=== PATIENT | male | born 1965 | race African-American/Black ===

== ENCOUNTER 2022-05-28 23:28 | Inpatient (IN) | payer MEDICAID ==
[~2022-05-28] VITALS: Ht 177.8 cm; Wt 52.9 kg
[2022-05-29] MEDS ORDERED: diphenhdrAMINE HCL 50 MG/1 ML VL IV ONE (00:15)
[2022-05-29] MEDS ORDERED: methylPREDNISolone SOD SUCC 125 MG/2 ML VL IV ONE (00:15)
[2022-05-29] MEDS ORDERED: FAMOTIDINE (10MG/ML) 2ML VL IV ONE (00:15)
[2022-05-29 01:36] LABS: Basophils # (auto) 0 10 ^3/uL (0-0.2); Basophils % (auto) 0.3 % (0.0-2.0); Eosinophils # (auto) 0.1 10 ^3/uL (0-0.8); Eosinophils % (auto) 3.1 % (0.0-7.0); Hematocrit 41.9 % (41.0-53.0); Hemoglobin 14.7 g/dL (13.5-17.5); Lymphocytes # (auto) 0.8 10 ^3/uL (0.4-5.4); Lymphocytes % (auto) 20.2 % (10.0-50.0); Mean Corpuscular Hemoglobin 30.6 pg (28.0-32.0); Mean Corpuscular Hgb Conc. 35.1 g/dL (32.0-36.0); Mean Corpuscular Volume 87.1 fL (80.0-100.0); Monocytes # (auto) 0.4 10 ^3/uL (0-1.3); Monocytes % (auto) 11.3 % (0.0-12.0); Neutrophils # (auto) 2.6 10 ^3/uL (1.6-8.6); Neutrophils % (auto) 65.1 % (37.0-80.0); Nucleated Red Blood Cells % 0.1 %; Red Blood Cells 4.81 10^6/uL (4.5-5.90); Red Cell Distribution Width 13.7 % (11.8-14.3)
[2022-05-29 01:42] LABS: Albumin 3.3 g/dL (3.4-5.0); Calcium 8.4 mg/dL (8.5-10.1); Potassium 3.7 mmol/L (3.5-5.1)
[2022-05-29 01:46] LABS: BUN/Creatinine Ratio 18.2 (10.0-20.0)
[2022-05-29 01:48] LABS: Bilirubin, Total 0.3 mg/dL (0.2-1.0); Total Protein 6.7 g/dL (6.4-8.2)
[2022-05-29] MEDS ORDERED: diphenhdrAMINE HCL 25 MG CAP PO PRN (06:45)
[2022-05-29] MEDS ORDERED: HYDROcodone-ACET 5/325MG TAB PO PRN (06:45)
[2022-05-29] MEDS ORDERED: ACETAMINOPHEN 325 MG TAB PO PRN (06:45)
[2022-05-29] MEDS ORDERED: ONDANSETRON HCL 4 MG/2 ML VIAL IV PRN (06:45)
[2022-05-29] MEDS ORDERED: TEMAZEPAM 15 MG CAP PO PRN (06:45)
[2022-05-29] MEDS: ALBUTEROL SULF 2.5 MG/0.5ML(0.5%) NEB SOLN NEB PRN ×2 (07:21→21:56)
[2022-05-29] MEDS: SODIUM CHLORIDE 0.9% 1,000 ML IV SCH ×2 (08:35→18:31)
[2022-05-29] MEDS ORDERED: hydrALAZINE HCL 20 MG/ML VL IV PRN (08:45)
[2022-05-29 09:32] VITALS: BP 183/129
[2022-05-29] MEDS: FAMOTIDINE (10MG/ML) 2ML VL IV SCH ×2 (10:38→21:33)
[2022-05-29] MEDS: methylPREDNISolone SOD SUCC 125 MG/2 ML VL IV SCH ×2 (10:38→21:33)
[2022-05-29] MEDS: BENAZEPRIL HCL 10 MG TAB PO SCH (10:39)
[2022-05-29] MEDS: amLODIPine BESYLATE 5 MG TAB PO SCH (10:39)
[2022-05-29] MEDS: HYDROCORTONE 1% TOPICAL CREAM 30 GM TUBE TOP SCH ×2 (11:04→22:29)
[2022-05-29 11:16] LABS: Urine Bacteria NONE SEEN /hpf (None Seen); Urine Blood Negative /uL (Negative); Urine Specific Gravity 1.016 (1.001-1.035); Urine WBC <1 /hpf (0 - 3)
[2022-05-29 11:59] LABS: Alcohol, Urine < 3.0 mg/dL (0-10)
[2022-05-29 12:18] LABS: Amphetamine Screen, Urine NEGATIVE (NEGATIVE); Barbiturate Scree,Urine NEGATIVE (NEGATIVE); Benzodiazephine Screen, Urine NEGATIVE (NEGATIVE); Cannabinoid Screen, Urine POSITIVE (NEGATIVE); Cocaine Screen, Urine NEGATIVE (NEGATIVE); Opiate Scree,Urine NEGATIVE (NEGATIVE); Phencyclidine Screen, Urine NEGATIVE (NEGATIVE)
[2022-05-29 17:00] VITALS: BP 152/87
[2022-05-29 17:16] VITALS: BP 152/87
[2022-05-29 23:26] VITALS: BP 150/87
[2022-05-30 05:01] VITALS: BP 134/77
[2022-05-30] MEDS: SODIUM CHLORIDE 0.9% 1,000 ML IV SCH (06:17)
[2022-05-30 06:23] LABS: Basophils # (auto) 0 10 ^3/uL (0-0.2); Basophils % (auto) 0.3 % (0.0-2.0); Eosinophils # (auto) 0 10 ^3/uL (0-0.8); Hemoglobin 14.4 g/dL (13.5-17.5); Lymphocytes # (auto) 0.6 10 ^3/uL (0.4-5.4); Lymphocytes % (auto) 6.6 % (10.0-50.0); Mean Corpuscular Hemoglobin 30.6 pg (28.0-32.0); Mean Corpuscular Hgb Conc. 35.2 g/dL (32.0-36.0); Mean Corpuscular Volume 86.9 fL (80.0-100.0); Monocytes # (auto) 0.5 10 ^3/uL (0-1.3); Monocytes % (auto) 5.2 % (0.0-12.0); Neutrophils # (auto) 7.9 10 ^3/uL (1.6-8.6); Neutrophils % (auto) 87.9 % (37.0-80.0); Nucleated Red Blood Cells % 0.4 %; Red Blood Cells 4.72 10^6/uL (4.5-5.90); Red Cell Distribution Width 13.8 % (11.8-14.3); White Blood Cell 8.9 10^3/uL (4.4-10.8)
[2022-05-30 06:35] LABS: Calcium 8.7 mg/dL (8.5-10.1); Potassium 3.8 mmol/L (3.5-5.1)
[2022-05-30 06:37] LABS: BUN/Creatinine Ratio 17.6 (10.0-20.0)
[2022-05-30 08:30] VITALS: BP 141/85
[2022-05-30] MEDS: FAMOTIDINE (10MG/ML) 2ML VL IV SCH (09:03)
[2022-05-30] MEDS: BENAZEPRIL HCL 10 MG TAB PO SCH (09:03)
[2022-05-30] MEDS: methylPREDNISolone SOD SUCC 125 MG/2 ML VL IV SCH (09:03)
[2022-05-30] MEDS: amLODIPine BESYLATE 5 MG TAB PO SCH (09:04)
[2022-05-30] MEDS: HYDROCORTONE 1% TOPICAL CREAM 30 GM TUBE TOP SCH (09:04)
[2022-05-30 13:00] VITALS: BP 145/83
[2022-05-30 14:02] VITALS: BP 145/83
== END 2022-05-30 17:00 | disposition home or self-care (01) | DRG 811 ==
LOC: ER 23:28 → OVERFLOW 05-29 06:39 → EAST 05-29 15:43
PROVIDERS: ADMIT Nurse Practitioner; ATTEND Internal Medicine
DX: T78.49XA Other allergy, initial encounter (principal); F17.210 Nicotine dependence, cigarettes, uncomplicated; T50.8X5A Adverse effect of diagnostic agents, initial encounter; I10 Essential (primary) hypertension; J44.9 Chronic obstructive pulmonary disease, unspecified; R23.8 Other skin changes; S40.822A Blister (nonthermal) of left upper arm, initial encounter; S40.821A Blister (nonthermal) of right upper arm, initial encounter; X58.XXXA Exposure to other specified factors, initial encounter; Y93.89 Activity, other specified; Z91.041 Radiographic dye allergy status; Y92.89 Other specified places as the place of occurrence of the external cause; Y99.8 Other external cause status; Z71.6 Tobacco abuse counseling
CPT/HCPCS: 36415; 71045; 80048; 80053; 80307; 81001; 85025; 94640; 96374; 96375; G0378; J3490

== ENCOUNTER 2022-09-09 13:44 | Emergency (ER) | payer MEDICAID ==
[~2022-09-09] VITALS: Ht 177.8 cm; Wt 52.2 kg
[2022-09-09 15:53] VITALS: BP 107/75; PULSE 76; RESP 18; TEMP 98.1; O2SAT 97
== END 2022-09-09 15:55 | disposition home or self-care (01) ==
LOC: EDBD 13:44 → ER 13:44 → EDUNIT# 13:44 → ER 15:54
DX: I10 Essential (primary) hypertension (principal); J44.9 Chronic obstructive pulmonary disease, unspecified; F17.210 Nicotine dependence, cigarettes, uncomplicated; F15.90 Other stimulant use, unspecified, uncomplicated; Z91.119 Patient's noncompliance with dietary regimen due to unspecified reason

== ENCOUNTER 2024-02-28 22:56 | Inpatient (IN) | payer MEDICAID ==
[~2024-02-28] VITALS: Ht 175.3 cm; Wt 52.1 kg
[~2024-02-28 22:56] MED LIST: ALBU108A5 IN; BENA-26 PO; FLUT500M2 INH; LIDO1PAD55 TOP; OMEP-448 PO; TIOTCAP IN
[2024-02-28] MEDS ORDERED: DexAMETHasone INJECTION 10 MG in D5W 5% 50 ML IV ONE (23:15)
[2024-02-28 23:34] VITALS: PULSE 81; O2SAT 95
[2024-02-29] VITALS (17 sets, daily range): BP systolic 106–171; BP diastolic 76–107; PULSE 63–88; RESP 14–20; TEMP 96.9–98.4; O2SAT 95–100
[2024-02-29 00:11] LABS: Basophils # (auto) 0 10 ^3/uL (0-0.2); Basophils % (auto) 0.3 % (0.0-2.0); Eosinophils # (auto) 0.1 10 ^3/uL (0-0.8); Hematocrit 46.1 % (41.0-53.0); Hemoglobin 16.1 g/dL (13.5-17.5); Lymphocytes # (auto) 1.2 10 ^3/uL (0.4-5.4); Lymphocytes % (auto) 13.3 % (10.0-50.0); Mean Corpuscular Hgb Conc. 34.8 g/dL (32.0-36.0); Monocytes # (auto) 0.7 10 ^3/uL (0-1.3); Monocytes % (auto) 7.7 % (0.0-12.0); Neutrophils # (auto) 7.1 10 ^3/uL (1.6-8.6); Neutrophils % (auto) 77.7 % (37.0-80.0); Nucleated Red Blood Cells % 0.1 %; Platelet Count (auto) 179 10^3/uL (140-450); Red Blood Cells 5.01 10^6/uL (4.5-5.90); Red Cell Distribution Width 13.5 % (11.8-14.3); White Blood Cell 9.1 10^3/uL (4.4-10.8)
--- NOTE | 2024-02-29 00:18 | DVH ---
CHEST RADIOGRAPH Indication: Shortness of breath Technique: Single frontal view of the chest was obtained COMPARISON: XY CHEST PORTABLE on DOS: 05/29/22 FINDINGS: Lines and Tubes: None Lungs: Bibasilar atelectasis/scarring. Pleura: No effusion. Moderate right basilar pneumothorax. Cardiomediastinal contours: Unremarkable Bones: Unremarkable IMPRESSION: 1. Moderate right basilar pneumothorax. Recommend noncontrast chest CT for further evaluation
[2024-02-29] MEDS: DexAMETHasone SOD PHOS 10MG/1ML VIAL INJ IV ONE (00:19)
[2024-02-29 00:41] LABS: Albumin 4.5 g/dL (3.2-4.8); Anion Gap 10 (5-15); Bilirubin, Total 0.3 mg/dL (0.2-1.0); Blood Urea Nitrogen 11 mg/dL (9-23); Calcium 9.3 mg/dL (8.7-10.4); Carbon Dioxide 27 mmol/L (20-31); Chloride 103 mmol/L (98-107); Glucose 102 mg/dL (74-106); Lipase 51 U/L (12-53); Sodium 140 mmol/L (136-145)
[2024-02-29 00:42] LABS: Alanine Aminotransferase 91 U/L (7-40); Alkaline Phosphatase 150 U/L (46-116); Aspartate Aminotransferase 111 U/L (13-40); Potassium 2.9 mmol/L (3.5-5.1)
--- NOTE | 2024-02-29 01:01 | ED.PDOC ---
History of Present Illness HPI Comments 58 y/o M, with a Hx of CHF, COPD w/2LPM home O2 use, HTN, and polysubstance abuse, is BIBA for c/o shortness of breath for 1x day, today. Per EMS report, patient endorses on unprovoked onset of symptoms, yesterday, that worsened, this evening, with no relief or improvement with home O2 of at-home breathing Tx use. He was noted to have been found with a SpO2 of 74% on his home O2, which was increased to 10LPM in addition to him being given a breathing treatment and steroids en route, with positive improvement. At time of assessment, patient denies having any chest pain, cough, fever, chills, or other associated symptoms or modifiers at this time. Patient was on 2 L and satting at approximately 92% Chief Complaint: Shortness of Breath Time Seen by MD: 23:00 Reviewed Notes: Nurses Notes, Emergency Communications Officer Notes, Medications, Allergies Allergies: Coded Allergies: NO KNOWN ALLERGIES (Unverified , 05/29/22) Home Meds No Active Prescriptions or Reported Meds Information Source: Patient, Emergency Med Personnel Mode of Arrival: EMS Severity: Moderate Timing: Days Duration: Since onset Prehospital treatment: 12 Lead EKG, Breathing Tx, Cash Clerk, Oxygen Past Medical History PAST MEDICAL HISTORY: CHF, COPD (2LPM), HTN Surgical History: Denies all surgeries Family History Family History: Reviewed,noncontributory to illness Social History Smoker: Cigarettes, Less Than 1 Pack/Day Alcohol: Occasionally Drugs: Marijuana Lives In: Home Constitutional: reports: fatigue, weakness; denies: chills, diaphoresis, fever, malaise, sweats, others EENTM: denies: blurred vision, double vision, ear bleeding, ear discharge, ear drainage, ear pain, ear ringing, eye pain, eye redness, hearing loss, mouth pa in, mouth swelling, nasal discharge, nose bleeding, nose congestion, nose pain, photophobia, tearing, throat pain, throat swelling, voice changes, others Respiratory: reports: cough, shortness of breath; denies: hemoptysis, orthopnea, SOB at rest, SOB with excertion, stridor, wheezing, others Cardiovascular: denies: chest pain, dizzy spells, diaphoresis, Dyspnea on exertion, edema, irregular heart beat, left arm pain, lightheadedness, palpitations, PND, syncope, others Gastrointestinal: denies: abdomen distended, abdominal pain, blood streaked bowels, constipated, diarrhea, dysphagia, difficulty swallowing, hematemesis, melena, nausea, poor appetite, poor fluid intake, rectal bleeding, rectal pain, vomiting, others Genitourinary: denies: burning, dysuria, flank pain, frequency, hematuria, incontinence, penile discharge, penile sore, pain, testicle pain, testicle swelling, urgency, others Neurological: reports: dizziness; denies: fainting, headache, left sided numbn ess, left sided weakness, numbness, paresthesia, pre-existing deficit, right sided numbness, right sided weakness, seizure, speech problems, tingling, tremors, weakness, others Musculoskeletal: denies: back pain, gout, joint pain, joint swelling, muscle pain, muscle stiffness, neck pain, others Integumetry: denies: bruises, change in color, change in hair/nails, dryness, laceration, lesions, lumps, rash, wounds, others Allergic/Immunocompromised: denies: Difficulty Healing, Frequent Infections, Hives, Itching, others Hematologic/Lymphatic: denies: anemia, blood clots, easy bleeding, easy bruising, swollen glands, others Endocrine: denies: excessive hunger, excessive sweating, excessive thirst, excessive urination, flushing, intolerance to cold, intolerance to heat, unexplained weight gain, unexplained weight loss, others Psychiatric: denies: anxiety, bipolar disorder, depression, hopeless, panic disorder, schizophrenia, sleepless, suicidal, others All Other Systems: Reviewed and Negative (negative unless otherwise stated above or in HPI) Physical Exam General Appearance: Mild Distress (Patient was in only mild distress at time of evaluation due to shortness a breath concerns.), Normal HEENT: Normal ENT Inspection, Pharynx Normal, TMs Normal Neck: Full Range of Motion, Non-Tender, Normal, Normal Inspection Respiratory: Other (Mild rhonchi appreciated throughout bilateral lung moore.) Cardiovascular: No Edema, No JVD, No Murmur, No Gallop, Normal Peripheral Pulses, Regular Rate/Rhythm Breast Exam: Deferred Gastrointestinal: No Organomegaly, Non Tender, No Pulsatile Mass, Normal Bowel Sounds, Soft Genitalia: Deferred Pelvic: Deferred Rectal: Deferred Extremities: No calf tenderness, Normal capillary refill, Non-tender, No pedal edema Neurologic: Alert, No Motor Deficits, Normal Affect, Normal Mood, No Sensory Deficits Cerebellar Function: Normal Reflexes: Normal Skin: Dry, Normal Color, Warm Lymphatic: No Adenopathy Was a procedure done? Was a procedure done?: No EKG EKG : Pulse Rate (adult): 88 [place]: LAD Cardiac Rhythm: NSR Block: None Hypertrophy: JUDITH ST: Old, Ant, Infarct Differential Dx Considerations may include: [place], PE, URI, viral syndrome, pleural effusions, bronchitis, PNA, covid19, COPD exacerbation X-Ray, Labs, Meds, VS Vital Signs Date Time Temp Pulse Resp B/P (MAP) Pulse Ox O2 Delivery O2 Flow Rate FiO2 02/29/24 01:01 88 02/28/24 23:40 96.9 81 19 126/88 (101) 95 96.9 02/28/24 23:34 81 95 Nasal Cannula* 3 32 02/28/24 23:28 88 02/28/24 23:20 97.6 94 20 167/138 (148) 100 Lab Test 02/29/24 00:57 02/28/24 23:57 Range/Units Troponin I High Sensitivity 576 *H 219 *H </=54 ng/L White Blood Count 9.1 4.4-10.8 10^3/uL Red Blood Count 5.01 4.5-5.90 10^6/uL Hemoglobin 16.1 13.5-17.5 g/dL Hematocrit 46.1 41.0-53.0 % Mean Corpuscular Volume 92.0 80.0-100.0 fL Mean Corpuscular Hemoglobin 32.0 28.0-32.0 pg Mean Corpuscular Hemoglobin Concent 34.8 32.0-36.0 g/dL Red Cell Distribution Width 13.5 11.8-14.3 % Platelet Count 179 140-450 10^3/uL Mean Platelet Volume 7.8 6.9-10.8 fL Neutrophils (%) (Auto) 77.7 37.0-80.0 % Lymphocytes (%) (Auto) 13.3 10.0-50.0 % Monocytes (%) (Auto) 7.7 0.0-12.0 % Eosinophils (%) (Auto) 1.0 0.0-7.0 % Basophils (%) (Auto) 0.3 0.0-2.0 % Neutrophils # (Auto) 7.1 1.6-8.6 10 ^3/uL Lymphocytes # (Auto) 1.2 0.4-5.4 10 ^3/uL Monocytes # (Auto) 0.7 0-1.3 10 ^3/uL Eosinophils # (Auto) 0.1 0-0.8 10 ^3/uL Basophils # (Auto) 0 0-0.2 10 ^3/uL Nucleated Red Blood Cells 0.1 % Sodium Level 140 136-145 mmol/L Potassium Level 2.9 L 3.5-5.1 mmol/L Chloride Level 103 98-107 mmol/L Carbon Dioxide Level 27 20-31 mmol/L Anion Gap 10 5-15 Blood Urea Nitrogen 11 9-23 mg/dL Creatinine 0.92 0.700-1.30 mg/dL Glomerular Filtration Rate Calc 96 >90 mL/min BUN/Creatinine Ratio 12.0 10.0-20.0 Serum Glucose 102 74-106 mg/dL Calcium Level 9.3 8.7-10.4 mg/dL Total Bilirubin 0.3 0.2-1.0 mg/dL Aspartate Amino Transferase (AST) 111 H 13-40 U/L Alanine Aminotransferase (ALT) 91 H 7-40 U/L Alkaline Phosphatase 150 H 46-116 U/L B-Type Natriuretic Peptide 45.90 0-100 pg/mL Total Protein 7.0 5.7-8.2 g/dL Albumin 4.5 3.2-4.8 g/dL Lipase 51 12-53 U/L Current Medications Medications (Trade) Dose Ordered Sig/Jh Route Start Time Stop Time Status Last Admin Dexamethasone Sodium Phosphate (Decadron Injection) 10 mg ONCE ONCE IV 02/29/24 00:15 02/29/24 00:16 DC 02/29/24 00:19 Potassium Chloride 100 ml @ 50 mls/hr Q2H IV 02/29/24 01:30 02/29/24 05:29 02/29/24 01:36 X-Ray, Labs, Meds, VS Comment All studies performed the ED were reviewed by me personally. Serum laboratories remarkable for a significant elevation of the patient's troponin. EKG revealed a sinus rhythm with a rate of 88. Right atrial enlargement, left axis deviation, old anterior infarct with nonspecific T-wave abnormalities on lateral leads. ID interval and 38. QT interval of 393. CT of chest revealed severe central lobular emphysema as well as some small nodular densities seen in bilateral lobes. Due to respiratory distress displayed at time of EMS arrival as well as elevated tropes and EKG findings, patient will be admitted for management of his significant emphysema hand cardiac concerns. Patient and was a [facility] patient and therefore, I spoke with provider Serafin Martinez. Advised him of EMS findings as well as laboratory imaging studies at our facility. He agreed to accept the patient as an admission. Time of 1ST Reevaluation: :32 Reevaluation 1ST: Improved Consultation: PCP, Cardiology Patient Education/Counseling: Diagnosis, Treatment Family Education/Counseling: Diagnosis, Treatment, No Family Present Additional Information I reviewed the following notes from patient's past medical encounters: ED physician documentation on 05/29/22 and 09/10/23 and hospital discharge admission report on 05/30/22 The following tests were ordered, and results were reviewed by me: CT chest w/o contrast, troponin, lipase, BNP, CMP, CBC Additional Information was gathered from interviewing the following independent historians: EMT I reviewed and agreed with the following test results read by other providers: CT chest w/o contrast I discussed treatment and results with medical personnel Departure 1 Departure Time of Disposition: :32 Impression: Primary Impression: Acute respiratory distress Additional Impressions: Emphysema lung Elevated troponin Disposition: ADMITTED INPATIENT Condition: Stable e-Prescriptions No Active Prescriptions or Reported Meds Discharged With: Self Critical Care Note Critical Care Time?: No Stability Stability form required: No Heart Score Heart Score: Heart Score Response (Comments) Value History Moderate Suspicious 1 EKG Normal 0 Age 45-64 1 Risk Factors >3 or Hx ASHD 2 Troponin >3 x's Normal limit 2 Total 6 I personally scribed for MELANIE NAJERA PAC ([email or web address]) on 02/29/24 at 01:01. Electronically submitted by Omar Evans ([email or web address]). MELANIE NAJERA PAC Feb 29, 2024 01:01
--- NOTE | 2024-02-29 01:03 | DVH ---
Procedure: CT CHEST WITHOUT CONTRAST Reason for study/Clinical History: Shortness of breath Comparison Study: None available at time of dictation. Exam Date: 02/29/2024 12:41 AM TECHNIQUE: Multidetector CT of the chest was performed from the lung apices to the upper abdomen with out the use of intravenous contract. Axial, coronal and sagittal multiplanar reformats were performed . Radiation Dose Information: CT Dose: CTDI volume is 4.6 mGy. Dose-length product is 209 mGy*cm The dose indicators for CT are the volume Computed Tomography (CT) Dose Index (CTDIvol) and the Dose Length Product (DLP), and are measured in units of mGy and mGy-cm, respectively. These indicators are not patient dose, but values generated from the CT scanner acquisition factors. The report includes radiation exposure data for exposures received during this examination. FINDINGS: Lower neck: Normal thyroid. Lungs: No focal consolidation, pleural effusion or pneumothorax. Severe centrilobular emphysema. Mult iple large bullae are seen in the right lower thorax, the largest measuring up to 11 cm. 1 cm nodular density is seen in the left upper lobe. 1.4 cm nodular density is seen in the right upper lobe adjac ent to the major fissure. Heart/Vascular Structures: Normal heart size. No pericardial effusion. Lymph Nodes: No adenopathy Pleura: No pleural effusion or significant pneumothorax. Musculoskeletal: No acute osseous abnormality. Soft tissues: Normal. Upper abdomen: Limited portions of the upper abdomen are unremarkable. IMPRESSION: 1. No acute intrathoracic abnormality. 2. The previously suspected right basilar pneumothorax is actually a large bullae in the right lower thorax. No true pneumothorax is identified. 3. Severe centrilobular emphysema. 4. 1 cm nodular density is seen in the left upper lobe. 1.4 cm nodular density is seen in the right u pper lobe adjacent to the major fissure. No prior CT chest is available in PACS for comparison. Recom mend PET-CT for further evaluation. Radiation optimization: All CT scans at this facility use at least one of these dose optimization timo hniques: automated exposure control mA and/or kV adjustment per patient size (includes targeted exam s where dose is matched to clinical indication) or iterative reconstruction.
[2024-02-29] MEDS: POTASSIUM CHL 20MEQ/100ML 100 ML IV SCH (01:36)
[2024-02-29] MEDS: ASPirin 325 MG TAB PO ONE (02:00)
[2024-02-29] MEDS ORDERED: MORPHINE SULFATE INJ 2 MG/ml SYRG IV PRN (02:45)
[2024-02-29] MEDS ORDERED: DOCUSATE SOD 100 MG CAP PO PRN (02:45)
[2024-02-29] MEDS ORDERED: HYDROcodone-ACET 5/325MG TAB PO PRN (02:45)
[2024-02-29] MEDS ORDERED: NITROGLYCERIN 0.4 MG SL TAB SL PRN (02:45)
[2024-02-29] MEDS ORDERED: ONDANSETRON HCL 4 MG/2 ML VIAL IV PRN (02:45)
[2024-02-29] MEDS ORDERED: ACETAMINOPHEN 325 MG TAB PO PRN (02:45)
--- NOTE | 2024-02-29 02:51 | DVHHP2 ---
ADITYA JACKSON DUMP TRUCK DRIVER 02/29/24 0251: History of Present Illness Reason for Visit: Shortness of breath History of Present Illness 58-year-old male presents with complaints Of short of breath times two days. Patient endorses having upper respiratory infection symptoms with productive cough over the previous week. Patient endorses mild chest pressure Non- radiating. During the emergency department of evaluation the patient is found to have elevated troponin levels 219/576. Patient denies fevers, chills, Nausea, vomiting, Abdominal pain, leg swelling. Cardiovascular: HTN Pulmonary: COPD Review of Systems Constitutional: No: Fever, Chills, Sweats, Weakness, Malaise, Other Eyes: No: Pain, Vision change, Conjunctivae inflammation, Eyelid inflammation, Other, Redness Respiratory: Cough, Shortness of breath; No: Dry, SOB with excertion, Wheezing, Hemoptysis, Pleuritic Pain, Sputum, Wheezing, Other Cardiovascular: Chest Pain; No: Palpitations, Orthopnea, Paroxysmal Noc. Dyspnea, Edema, Lt Headedness, Other Gastrointestinal: No: Nausea, Vomiting, Abdominal Pain, Diarrhea, Constipation, Melena, Hematochezia, Other Genitourinary: No Dysuria, No Frequency, No Incontinence, No Hematuria, No Retention, No Other Musculoskeletal: No: other, neck pain, shoulder pain, arm pain, back pain, hand pain, leg pain, foot pain Skin: No: Rash, Lesions, Jaundice, Bruising, Other Neurological: No: Weakness, Numbness, Incoordination, Change in speech, Confusion, Seizures, Other Allergies: Coded Allergies: Iodide (Verified Allergy, Severe, 03/01/24) Medications Current Medications Medications Dose Ordered Sig/Jh Route Start Time Stop Time Status Last Admin Dose Admin Potassium Chloride 100 ml @ 50 mls/hr Q2H IV 02/29/24 01:30 02/29/24 05:29 02/29/24 01:36 50 MLS/HR Docusate Sodium 100 mg BIDPRN PRN PO 02/29/24 02:45 UNV Acetaminophen 650 mg Q6HP PRN PO 02/29/24 02:45 UNV Acetaminophen/ Hydrocodone Bitart 1 tab Q4HP PRN PO 02/29/24 02:45 UNV Ondansetron HCl 4 mg Q4HP PRN IV 02/29/24 02:45 UNV Nitroglycerin 0.4 mg Q5MINP PRN SL 02/29/24 02:45 UNV Morphine Sulfate 2 mg Q30M PRN IV 02/29/24 02:45 UNV Albuterol 2.5 mg Q6HR NEB 02/29/24 06:00 UNV Ipratropium Sayre 0.5 mg Q6HR NEB 02/29/24 06:00 UNV Aspirin 81 mg DAILY PO 02/29/24 10:00 UNV Atorvastatin Calcium 10 mg DAILY PO 02/29/24 10:00 UNV Enoxaparin Sodium 60 mg Q12HR SC 02/29/24 10:00 UNV Pantoprazole Sodium 40 mg DAILY IV 02/29/24 10:00 UNV Exam Vital Signs Vital Signs Date Time Temp Pulse Resp B/P (MAP) Pulse Ox O2 Delivery O2 Flow Rate FiO2 02/29/24 01:01 88 02/28/24 23:40 96.9 19 126/88 (101) 95 96.9 02/28/24 23:34 Nasal Cannula* 3 32 General Appearance: Alert, Oriented X3, Cooperative, mild distress HEENT: Atraumatic, PERRLA, EOMI Respiratory: Normal air movement, Other (Diminished air movement) Cardiovascular: Regular rate, Normal S1, Normal S2 Abdominal: Normal bowel sounds, Soft Extremities: No clubbing, No cyanosis, No edema Skin: No breakdown Neuro: Normal speech, Strength at 5/5 X4 ext Psych/Mental Status: Mental status NL, Mood NL Labs/Xrays Labs Test 02/29/24 00:57 02/28/24 23:57 Range/Units Troponin I High Sensitivity 576 *H </=54 ng/L White Blood Count 9.1 4.4-10.8 10^3/uL Red Blood Count 5.01 4.5-5.90 10^6/uL Hemoglobin 16.1 13.5-17.5 g/dL Hematocrit 46.1 41.0-53.0 % Mean Corpuscular Volume 92.0 80.0-100.0 fL Mean Corpuscular Hemoglobin 32.0 28.0-32.0 pg Mean Corpuscular Hemoglobin Concent 34.8 32.0-36.0 g/dL Red Cell Distribution Width 13.5 11.8-14.3 % Platelet Count 179 140-450 10^3/uL Mean Platelet Volume 7.8 6.9-10.8 fL Neutrophils (%) (Auto) 77.7 37.0-80.0 % Lymphocytes (%) (Auto) 13.3 10.0-50.0 % Monocytes (%) (Auto) 7.7 0.0-12.0 % Eosinophils (%) (Auto) 1.0 0.0-7.0 % Basophils (%) (Auto) 0.3 0.0-2.0 % Neutrophils # (Auto) 7.1 1.6-8.6 10 ^3/uL Lymphocytes # (Auto) 1.2 0.4-5.4 10 ^3/uL Monocytes # (Auto) 0.7 0-1.3 10 ^3/uL Eosinophils # (Auto) 0.1 0-0.8 10 ^3/uL Basophils # (Auto) 0 0-0.2 10 ^3/uL Nucleated Red Blood Cells 0.1 % Sodium Level 140 136-145 mmol/L Potassium Level 2.9 L 3.5-5.1 mmol/L Chloride Level 103 98-107 mmol/L Carbon Dioxide Level 27 20-31 mmol/L Anion Gap 10 5-15 Blood Urea Nitrogen 11 9-23 mg/dL Creatinine 0.92 0.700-1.30 mg/dL Glomerular Filtration Rate Calc 96 >90 mL/min BUN/Creatinine Ratio 12.0 10.0-20.0 Serum Glucose 102 74-106 mg/dL Calcium Level 9.3 8.7-10.4 mg/dL Total Bilirubin 0.3 0.2-1.0 mg/dL Aspartate Amino Transferase (AST) 111 H 13-40 U/L Alanine Aminotransferase (ALT) 91 H 7-40 U/L Alkaline Phosphatase 150 H 46-116 U/L B-Type Natriuretic Peptide 45.90 0-100 pg/mL Total Protein 7.0 5.7-8.2 g/dL Albumin 4.5 3.2-4.8 g/dL Lipase 51 12-53 U/L Assessment/Plan Assessment/Plan Elevated troponin NSTEMI Acute respiratory distress with hypoxia Hypokalemia Plan Admit to telemetry Cardiology consult. Echocardiogram. ASA, Statin. Repeat troponin Consult pulmonology. Bronchodilators. As needed supplemental O2 to maintain O2 saturation greater Than 93%. RT monitoring. Monitor BMP. Correct electrolytes as needed. Plan discussed with: Patient My Orders Orders - ADITYA JACKSON NP Procedure Category Date Status Time Rapid Influenza A&B LAB 02/29/24 Logged 02:43 Covid19 Antigen Kathy LAB 02/29/24 Logged Drug Screen LAB 02/29/24 Logged 02:43 Admit ADMIT 02/29/24 Transmitted 02:39 Code Status CODE 02/29/24 Transmitted 02:39 Vital Signs JOSE 02/29/24 In Process 02:39 Review Orders With JOSE 02/29/24 In Process Adm. 02:39 Encourage Activity As JOSE 02/29/24 In Process Tolerate 02:39 Consistent DIET 02/29/24 Transmitted Carb(Ccho)Diabetes Breakfast Oxygen By Face Mask RT 02/29/24 Transmitted 02:39 Docusate Sodium PHA 02/29/24 Logged Capsule (Colace 02:45 Acetaminophen Tablet PHA 02/29/24 Logged (Tylenol Tablet) 02:45 Notify Of Changes JOSE 02/29/24 In Process From Base 02:39 Advance Directive JOSE 02/29/24 In Process 02:39 Echo 2d Mode Cardiac US 02/29/24 Logged DOP 02:39 Basic Metabolic Panel LAB 02/29/24 Logged 05:00 Basic Metabolic Panel LAB 03/01/24 Verified 05:00 Basic Metabolic Panel LAB 03/02/24 Verified 05:00 Basic Metabolic Panel LAB 03/03/24 Verified 05:00 Basic Metabolic Panel LAB 03/04/24 Verified 05:00 Complete Blood Count LAB 02/29/24 Logged 05:00 Complete Blood Count LAB 03/01/24 Verified 05:00 Complete Blood Count LAB 03/02/24 Verified 05:00 Complete Blood Count LAB 03/03/24 Verified 05:00 Complete Blood Count LAB 03/04/24 Verified 05:00 Patient Condition ORDERS 02/29/24 Transmitted 02:39 Allergies JOSE 02/29/24 In Process 02:39 Hydrocodone-Acet PHA 02/29/24 Logged 5/325mg Tab ([place] 02:45 Ondansetron Hcl PHA 02/29/24 Logged (Zofran) 02:45 Sequential JOSE 02/29/24 In Process Compression Device Nitroglycerin PHA 02/29/24 Logged Sublingual (Ntrostat 02:45 Morphine Sulfate PHA 02/29/24 Logged Injection 02:45 Stat Ekg For Chest JOSE 02/29/24 In Process Pain 02:39 Notify Md Of Changes [facility] 02/29/24 In Process From Base 02:39 Gas Distribution Supervisor For [facility] 02/29/24 In Process 24 Hours 02:39 Emergency Dysrhythmia [facility] 02/29/24 In Process Protocol 02:39 Rhythm Strips Once [facility] 02/29/24 In Process Every Shift 02:39 Oxygen By Nasal RT 02/29/24 Transmitted Cannula 02:39 * Cardiology Consult CONS 02/29/24 Transmitted 02:39 *Consult CONS 02/29/24 Transmitted / 02:39 Albuterol Medneb PHA 02/29/24 Logged (Ventolin Medneb) 06:00 Ipratropium Medneb PHA 02/29/24 Logged (Atrovent Medneb) 06:00 Aspirin Enteric PHA 02/29/24 Logged Coated Tablet 10:00 Atorvastatin (Lipitor) PHA 02/29/24 Logged 10:00 Enoxaparin Sodium PHA 02/29/24 Logged (Lovenox) 10:00 Troponin-I Hs LAB 02/29/24 Logged 04:00 Troponin-I Hs LAB 02/29/24 Logged 10:00 Rapid Influenza A&B LAB 02/29/24 Logged 02:39 Drug Screen LAB 02/29/24 Logged 02:39 Pantoprazole PHA 02/29/24 Logged (Protonix) 10:00 Date of Service: Feb 29, 2024 Billing Provider: WAYNE MCCOLLUM MD Common Visit Codes: NOT BILLABLE WAYNE MCCOLLUM MD 03/01/24 1730: Review of Systems Allergies: Coded Allergies: Iodide (Verified Allergy, Severe, 03/01/24) Additional Comments Additional Comments Additional Comments Patient's chart is reviewed and discussed with the nurse practitioner. I agree with the nurse practitioner's evaluation, documentation, assessment and care plan as outlined. ADITYA JACKSON NP Feb 29, 2024 02:51 WAYNE MCCOLLUM MD Mar 01, 2024 17:30
[2024-02-29 03:28] LABS: Amphetamine Screen, Urine Neg (NEGATIVE); Barbiturate Scree,Urine Neg (NEGATIVE); Benzodiazephine Screen, Urine Neg (NEGATIVE); Cannabinoid Screen, Urine Pos (NEGATIVE); Cocaine Screen, Urine Neg (NEGATIVE); Opiate Scree,Urine Neg (NEGATIVE); Phencyclidine Screen, Urine Neg (NEGATIVE)
[2024-02-29 03:43] LABS: COVID19 ANTIGEN SOFIA FIA NEGATIVE (NEGATIVE); Rapid Influenza A Negative (Negative); Rapid Influenza B Negative (Negative)
--- NOTE | 2024-02-29 04:29 | ECG ---
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
[2024-02-29] MEDS: ALBUTEROL SULF 2.5 MG/0.5ML(0.5%) NEB SOLN ONE (05:38)
[2024-02-29] MEDS: IPRATROPIUM BROM 0.5 MG/2.5ML INH SOL ONE (05:38)
[2024-02-29] MEDS: IPRATROPIUM BROM 0.5 MG/2.5ML INH SOL NEB SCH ×2 (06:51→22:54)
[2024-02-29] MEDS: ALBUTEROL SULF 2.5 MG/0.5ML(0.5%) NEB SOLN NEB SCH ×2 (06:51→22:53)
[2024-02-29] MEDS ORDERED: INFLUENZA TRIVALENT 2024-2025 0.5 ML INJ IM ONE (10:00)
[2024-02-29] MEDS: PANTOPRAZOLE 40 MG/10 ML VIAL INJ IV SCH (10:11)
[2024-02-29] MEDS: ASPirin-EC 81 mg tab PO SCH (10:12)
[2024-02-29] MEDS: ATORVASTATIN 20 MG TAB PO SCH (10:12)
[2024-02-29] MEDS: ENOXAPARIN SOD 100 MG/1 ML SYRINGE SC SCH (10:12)
--- NOTE | 2024-02-29 10:51 | DVHSR ---
APPROVED REPORT EXAM: Two-dimensional and M-mode echocardiogram with Doppler and color Doppler. Blood Pressure: 117/87 mmHg INDICATION Elevated Troponin RISK FACTORS Height: 5'9", Weight: 105 DIMENSIONS LVDd3.7 (3.8-5.7cm)LA (2D)3.7 (1.9-4.0cm)Aortic Root3.4 (2.0-3.7cm) LVDs2.7 (2.5-4.0cm)LA (MM) (1.9-4.0cm)Aortic Cusp Exc1.8 (1.5-2.0cm) EF (%) 53.0 (55-70%)Rt. Atrium4.0 (1.9-4.0cm)Asc. Aorta cm IVSd1.0 (0.7-1.1cm)RV (D) (1.8-2.4cm) PWd1.1 (0.7-1.1cm) Mitral Valve MitralMitral Stenosis E/A ratio0.02D MVAcm2 Aortic Valve Aortic ValveAortic Stenosis LVOT Diameter2.0 (1.8-2.4cm)Doppler AVAcm2 Pulmonic Valve V20.83m/s LEFT VENTRICLE Normal left ventricular size. Wall thickness is normal. Ejection fraction is low normal and is mellissa mated at 50% based on visual estimate. There is severe hypokinesis of the mid and distal anterosepta l wall. Diastolic function is not well assessed. RIGHT VENTRICLE The right ventricle is of normal size. Systolic function is normal. ATRIA Both atria appear to be of normal size. MITRAL VALVE Normal structure and function. No significant mitral regurgitation. PULMONIC VALVE Likely normal. TRICUSPID VALVE Normal structure and function. Trace tricuspid regurgitation. PA systolic pressure isn't adequately estimated. AORTIC VALVE Normal structure and function. GREAT VESSELS The aortic root is of normal size. Proximal ascending aorta isn't visualized. PERICARDIAL EFFUSION No significant pericardial effusion. IVC is dilated in size and does not collapse normally with insp iration. Other Information Quality : Technically LimitedRhythm : Technically limited study due to body habitus. Conclusion Study is technically limited. Low-normal left ventricular systolic function with ejection fraction of 50%. Severe hypokinesis of mid and distal anterior septal wall. Normal right ventricular size and systolic function. No hemodynamically significant valvular disease. PA systolic pressure could not be adequately estimated.
[2024-02-29 11:25] LABS: Basophils # (auto) 0 10 ^3/uL (0-0.2); Basophils % (auto) 0.2 % (0.0-2.0); Eosinophils # (auto) 0 10 ^3/uL (0-0.8); Hematocrit 40.8 % (41.0-53.0); Hemoglobin 14.5 g/dL (13.5-17.5); Lymphocytes # (auto) 0.6 10 ^3/uL (0.4-5.4); Lymphocytes % (auto) 10.5 % (10.0-50.0); Mean Corpuscular Hemoglobin 31.8 pg (28.0-32.0); Mean Corpuscular Hgb Conc. 35.4 g/dL (32.0-36.0); Mean Corpuscular Volume 89.8 fL (80.0-100.0); Monocytes # (auto) 0.3 10 ^3/uL (0-1.3); Monocytes % (auto) 4.8 % (0.0-12.0); Neutrophils % (auto) 84.5 % (37.0-80.0); Nucleated Red Blood Cells % 0.2 %; Platelet Count (auto) 199 10^3/uL (140-450); Red Blood Cells 4.54 10^6/uL (4.5-5.90); Red Cell Distribution Width 13.1 % (11.8-14.3); White Blood Cell 5.9 10^3/uL (4.4-10.8)
[2024-02-29 12:03] LABS: Chloride 107 mmol/L (98-107); Potassium 4.1 mmol/L (3.5-5.1); Sodium 139 mmol/L (136-145)
[2024-02-29 12:04] LABS: Anion Gap 9 (5-15); Carbon Dioxide 23 mmol/L (20-31)
[2024-02-29 12:09] LABS: Blood Urea Nitrogen 15 mg/dL (9-23)
[2024-02-29 12:12] LABS: Calcium 8.5 mg/dL (8.7-10.4); Glucose 166 mg/dL (74-106)
[2024-02-29] MEDS ORDERED: ALBUAER3 IN (12:29)
[2024-02-29] MEDS ORDERED: IBUP200C3 PO (12:29)
[2024-02-29] MEDS ORDERED: AML5T PO (12:29)
[2024-02-29] MEDS ORDERED: OME20GT PO (12:30)
--- NOTE | 2024-02-29 18:51 | DVHINCON2 ---
Date Seen: Feb 29, 2024 Referring Physician Sr. Sommer Reason for Consultation Shortness of breath. Elevated troponins. Non ST-elevation myocardial infarction. History of Present Illness 58-year-old gentleman with a noted history of chronic obstructive lung disease comes in complaining of progressive shortness of breath and what appears to be a COPD exacerbation. His symptoms progressed in severity and intensity for which he came to the emergency room. He was found to have what appears to be an exacerbation of COPD and a non ST elevation myocardial infarction. Further evaluations revealed an echocardiogram this showed diminished ejection fraction at about 45-50% with anterior hypokinesis And as noted previously elevated troponin. Past Medical History Noted COPD. Questionable history of previous congestive heart failure. Uncontrolled hypertension. Past Surgical History No past surgical history of significance. Family History: Chronic obstructive pulmonary disease G8 MOTHER G8 FATHER FH: HTN (hypertension) G8 MOTHER Family History Family history significant for CAD. Social History Patient is to his 2nd . Noted history of smoking for many years. No drugs or ETOH abuse. Allergies: Coded Allergies: NO KNOWN ALLERGIES (Unverified , 05/29/22) Home Meds Reported Medications Fluticasone-Salmeterol (Advair Diskus 500/50) 1 Puff Ih, 1 PUFF INH BID for 30 Days, #60 02/29/24 Lidocaine (Lidocaine) 5 % Pad, 1 PAD TOP Q12HR for 60 Days, #60 APPLY 1 PATCH TOPICALLY TO CLEAN, DRY SKIN. LEAVE ON FOR 12 HOURS THEN REMOVE. MUST WAIT AT LEAST 12 HOURS BEFORE APPLYING PATCH(ES) AGAIN. 02/29/24 Benazepril & Hydrochlorothiazi (Benazepril Hydrochloride/ 20-25 mg) 1 Tab Tab, 1 TAB PO DAILY for 30 Days, #30 02/29/24 Omeprazole (Omeprazole Dr) 40 Mg Cap, 1 CAP PO DAILY for 30 Days, #30 02/29/24 Albuterol Sulfate (Albuterol Sulfate Hfa) 108 Mcg/Act Aer, 2 PUFF IN QID PRN for 25 Days, #9 02/29/24 Amlodipine Besylate (NORVASC TABLET) 5 Mg Tb, 2 TAB PO DAILY, #30 TAB 5 Refills 02/29/24 Tiotropium [place] Monohydrate (Spiriva Handihaler) 18 Mcg Cap, 1 CAP IN DAILY for 30 Days, #30 02/29/24 Ibuprofen (Ibuprofen) 200 Mg Cap, 200 MG PO Q6HPRN, MG 02/29/24 Discontinued Reported Medications Omeprazole (Prilosec Susp (For Gt)) 20 Mg Ss, 20 MG PO DAILY, ML 02/29/24 Albuterol Sulfate (VENTOLIN MDI) 90 Mcg Ih, 90 MCG IN Q4HPRN, INH 02/29/24 Current Medications Current Medications Medications (Trade) Dose Ordered Sig/Jh Route PRN Reason Start Time Stop Time Status Last Admin Potassium Chloride 100 ml @ 50 mls/hr Q2H IV 02/29/24 01:30 02/29/24 05:29 DC 02/29/24 03:23 Docusate Sodium (Colace Capsule) 100 mg BIDPRN PRN PO FOR CONSTIPATION 02/29/24 02:45 Acetaminophen (Tylenol Tablet) 650 mg Q6HP PRN PO PAIN SCALE 1-3 OR TEMP>100.4 02/29/24 02:45 Acetaminophen/ Hydrocodone Bitart ([place] 5/325MG Tab) 1 tab Q4HP PRN PO MODERATE PAIN (4-6 PAIN SCALE) 02/29/24 02:45 Ondansetron HCl (Zofran) 4 mg Q4HP PRN IV NAUSEA / VOMITING 02/29/24 02:45 Nitroglycerin (Ntrostat Sublingual) 0.4 mg Q5MINP PRN SL FOR CHEST PAIN 02/29/24 02:45 Morphine Sulfate 2 mg Q30M PRN IV FOR CHEST PAIN 02/29/24 02:45 Albuterol (Ventolin Medneb) 2.5 mg Q6HR NEB 02/29/24 06:00 02/29/24 18:38 Ipratropium [place] (Atrovent Medneb) 0.5 mg Q6HR NEB 02/29/24 06:00 02/29/24 18:37 Aspirin (Ecotrin Enteric Coated Tablet) 81 mg DAILY PO 02/29/24 10:00 02/29/24 10:12 Atorvastatin Calcium (Lipitor) 10 mg DAILY PO 02/29/24 10:00 02/29/24 10:12 Enoxaparin Sodium (Lovenox) 60 mg Q12HR SC 02/29/24 10:00 02/29/24 10:12 Pantoprazole Sodium (Protonix) 40 mg DAILY IV 02/29/24 10:00 02/29/24 10:11 Review of Systems He is review of systems from a constitutional standpoint significant for weight loss. Respiratory significant for shortness of breath. Cardiac is negative for angina but significant for shortness of breath and dyspnea. GI neurological negative. Musculoskeletal intact integumentary immunocompromised an allergy negative. Hematologic negative. Endocrine psychiatric otherwise negative. Vital Signs Vital Signs Date Time Temp Pulse Resp B/P (MAP) Pulse Ox O2 Delivery O2 Flow Rate FiO2 02/29/24 17:00 97.8 67 14 147/88 (107) 96 97.8 02/29/24 11:52 Room Air 0.0 02/29/24 11:52 21 Physical Exam HEENT examination is otherwise unremarkable orally well hydrated. Trachea central neck is supple thyroid is not palpable. There is no jugular distention. Bitemporal wasting. Enophthalmos. Signs of weight loss is noted. Lungs reveal diminished air entry with an increased AP diameter secondary to COPD. Heart exam reveals a regular S1-S2 faint heart sounds noted. No heaves thrills gallops or murmurs audible. Abdominal examination is unremarkable. Extremities reveal adequate perfusion without clubbing or cyanosis no edema. Neurologically intact. Integumentary is normal. Labs/Diagnostic Data Labs Test 02/29/24 13:09 02/29/24 10:19 02/29/24 02:50 02/28/24 23:57 Range/Units Troponin I High Sensitivity 403 *H </=54 ng/L White Blood Count 5.9 # 4.4-10.8 10^3/uL Red Blood Count 4.54 4.5-5.90 10^6/uL Hemoglobin 14.5 13.5-17.5 g/dL Hematocrit 40.8 #L 41.0-53.0 % Mean Corpuscular Volume 89.8 80.0-100.0 fL Mean Corpuscular Hemoglobin 31.8 28.0-32.0 pg Mean Corpuscular Hemoglobin Concent 35.4 32.0-36.0 g/dL Red Cell Distribution Width 13.1 11.8-14.3 % Platelet Count 199 140-450 10^3/uL Mean Platelet Volume 8.2 6.9-10.8 fL Neutrophils (%) (Auto) 84.5 H 37.0-80.0 % Lymphocytes (%) (Auto) 10.5 10.0-50.0 % Monocytes (%) (Auto) 4.8 0.0-12.0 % Eosinophils (%) (Auto) 0.0 0.0-7.0 % Basophils (%) (Auto) 0.2 0.0-2.0 % Neutrophils # (Auto) 5.0 1.6-8.6 10 ^3/uL Lymphocytes # (Auto) 0.6 0.4-5.4 10 ^3/uL Monocytes # (Auto) 0.3 0-1.3 10 ^3/uL Eosinophils # (Auto) 0 0-0.8 10 ^3/uL Basophils # (Auto) 0 0-0.2 10 ^3/uL Nucleated Red Blood Cells 0.2 % Sodium Level 139 136-145 mmol/L Potassium Level 4.1 3.5-5.1 mmol/L Chloride Level 107 98-107 mmol/L Carbon Dioxide Level 23 20-31 mmol/L Anion Gap 9 5-15 Blood Urea Nitrogen 15 9-23 mg/dL Creatinine 0.79 0.700-1.30 mg/dL Glomerular Filtration Rate Calc 102 >90 mL/min BUN/Creatinine Ratio 19.0 10.0-20.0 Serum Glucose 166 H 74-106 mg/dL Calcium Level 8.5 L 8.7-10.4 mg/dL Influenza Type A Antigen Negative Negative Influenza Type B Antigen Negative Negative SARS-CoV-2 Antigen (Rapid) Negative NEGATIVE Total Bilirubin 0.3 0.2-1.0 mg/dL Aspartate Amino Transferase (AST) 111 H 13-40 U/L Alanine Aminotransferase (ALT) 91 H 7-40 U/L Alkaline Phosphatase 150 H 46-116 U/L B-Type Natriuretic Peptide 45.90 0-100 pg/mL Total Protein 7.0 5.7-8.2 g/dL Albumin 4.5 3.2-4.8 g/dL Lipase 51 12-53 U/L Test 02/28/24 23:38 Range/Units Urine Opiates Screen Neg NEGATIVE Urine Fentanyl Screen Neg NEGATIVE Urine Barbiturates Screen Neg NEGATIVE Urine Phencyclidine Screen Neg NEGATIVE Urine Amphetamines Screen Neg NEGATIVE Urine Benzodiazepines Screen Neg NEGATIVE Urine Cocaine Screen Neg NEGATIVE Urine Cannabinoids Screen Pos NEGATIVE EKG shows sinus rhythm with nonspecific changes. Old anterior wall [place]. Assessment Hypokinesis of the anterior wall based on echocardiographic findings with elevated troponins suggesting recent subacute anterior wall myocardial infarction. With associated history of exacerbation of COPD. Signs and symptoms of congestive heart failure. Medical and dietary indiscretion. Nicotine addiction with a smoking history. Associated COPD. Plan/Recommendation Given his history and recent events I would recommend cardiac catheterization with therapeutic intervention necessary. I have discussed in detail he agrees with the risks and benefits. I have also discussed this with his . We will put patient on for an angiographic evaluation in the a.m.. Plan discussed with: Patient, Spouse NYHA Physical activity limitations: Class3(Marked) ordinary Date of Service: Feb 29, 2024 Billing Provider: BRENDAN BUTLER Sr., MD Cardiology Common Codes: 55010-[id number] INP/OBS CARE (High) BRENDAN BUTLER Sr., MD Feb 29, 2024 18:51
[2024-02-29] MEDS: hydrALAZINE HCL 20 MG/ML VL IV PRN (21:37)
--- NOTE | 2024-02-29 23:18 | DVHINCON2 ---
Date of service: Feb 29, 2024 Referring Physician Serafin Martinez NP Reason for Consultation Acute hypoxic respiratory failure and COPD exacerbation History of Present Illness A 58-year-old man with past medical history of COPD and hypertension who presented to ED on 02/28/24 with complaints of shortness of breath for 2 days. Patient endorsed having upper respiratory infection symptoms with productive cough over the previous week. He c/o mild chest pressure, nonradiating. Workup in ED found elevated troponin levels, 219/576. Patient denied fevers, chills, nausea, vomiting, abdominal pain, leg swelling. Patient was admitted for further care and pulmonary consultation is requested for evaluation and management of acute hypoxic respiratory failure and COPD exacerbation. Review of Systems: 14-point review of systems negative unless otherwise noted above. Past Medical History: COPD and hypertension, ?congestive heart failure. Past Surgical History: None Medications: Reviewed. Allergies: No known drug allergies. Family History: COPD, hypertension. Social History: Smoker for many years, smokes 0.5 PPD. No alcohol or illicit drug use. Family History: Chronic obstructive pulmonary disease G8 MOTHER, G8 FATHER FH: HTN (hypertension) G8 MOTHER, Allergies: Coded Allergies: Iodide (Verified Allergy, Severe, 03/01/24) Home Meds Active Scripts Carvedilol (Carvedilol) 6.25 Mg Tab, 1 TAB PO BID, #60 TAB 1 Refill Prov:WAYNE MCCOLLUM MD 03/01/24 Benazepril & Hydrochlorothiazi (Benazepril Hydrochloride/ 20-25 mg) 1 Tab Tab, 1 TAB PO DAILY for 30 Days, #30 TAB Prov:WAYNE MCCOLLUM MD 03/01/24 Reported Medications Fluticasone-Salmeterol (Advair Diskus 500/50) 1 Puff Ih, 1 PUFF INH BID for 30 Days, #60 02/29/24 Lidocaine (Lidocaine) 5 % Pad, 1 PAD TOP Q12HR for 60 Days, #60 APPLY 1 PATCH TOPICALLY TO CLEAN, DRY SKIN. LEAVE ON FOR 12 HOURS THEN REMOVE. MUST WAIT AT LEAST 12 HOURS BEFORE APPLYING PATCH(ES) AGAIN. 02/29/24 Omeprazole (Omeprazole Dr) 40 Mg Cap, 1 CAP PO DAILY for 30 Days, #30 02/29/24 Albuterol Sulfate (Albuterol Sulfate Hfa) 108 Mcg/Act Aer, 2 PUFF IN QID PRN for 25 Days, #9 02/29/24 Tiotropium [place] Monohydrate (Spiriva Handihaler) 18 Mcg Cap, 1 CAP IN DAILY for 30 Days, #30 02/29/24 Ibuprofen (Ibuprofen) 200 Mg Cap, 200 MG PO Q6HPRN, MG 02/29/24 Discontinued Reported Medications Amlodipine Besylate (NORVASC TABLET) 5 Mg Tb, 2 TAB PO DAILY, #30 TAB 5 Refills 02/29/24 Omeprazole (Prilosec Susp (For Gt)) 20 Mg Ss, 20 MG PO DAILY, ML 02/29/24 Albuterol Sulfate (VENTOLIN MDI) 90 Mcg Ih, 90 MCG IN Q4HPRN, INH 02/29/24 Current Medications Current Medications Medications (Trade) Dose Ordered Sig/Jh Route PRN Reason Start Time Stop Time Status Last Admin Potassium Chloride 100 ml @ 50 mls/hr Q2H IV 02/29/24 01:30 02/29/24 05:29 DC 02/29/24 03:23 Docusate Sodium (Colace Capsule) 100 mg BIDPRN PRN PO FOR CONSTIPATION 02/29/24 02:45 Acetaminophen (Tylenol Tablet) 650 mg Q6HP PRN PO PAIN SCALE 1-3 OR TEMP>100.4 02/29/24 02:45 Acetaminophen/ Hydrocodone Bitart ([place] 5/325MG Tab) 1 tab Q4HP PRN PO MODERATE PAIN (4-6 PAIN SCALE) 02/29/24 02:45 Ondansetron HCl (Zofran) 4 mg Q4HP PRN IV NAUSEA / VOMITING 02/29/24 02:45 Nitroglycerin (Ntrostat Sublingual) 0.4 mg Q5MINP PRN SL FOR CHEST PAIN 02/29/24 02:45 Morphine Sulfate 2 mg Q30M PRN IV FOR CHEST PAIN 02/29/24 02:45 Albuterol (Ventolin Medneb) 2.5 mg Q6HR NEB 02/29/24 06:00 02/29/24 19:24 DC 02/29/24 18:38 Ipratropium [place] (Atrovent Medneb) 0.5 mg Q6HR NEB 02/29/24 06:00 02/29/24 19:24 DC 02/29/24 18:37 Aspirin (Ecotrin Enteric Coated Tablet) 81 mg DAILY PO 02/29/24 10:00 02/29/24 10:12 Atorvastatin Calcium (Lipitor) 10 mg DAILY PO 02/29/24 10:00 02/29/24 10:12 Enoxaparin Sodium (Lovenox) 60 mg Q12HR SC 02/29/24 10:00 02/29/24 21:36 Pantoprazole Sodium (Protonix) 40 mg DAILY IV 02/29/24 10:00 02/29/24 10:11 Albuterol (Ventolin Medneb) 2.5 mg Q4HR NEB 02/29/24 22:00 02/29/24 22:53 Ipratropium [place] (Atrovent Medneb) 0.5 mg Q4HR NEB 02/29/24 22:00 02/29/24 22:54 Hydralazine HCl (Apresoline Injection) 10 mg Q4HP PRN IV SBP>160 02/29/24 21:30 02/29/24 21:37 Vital Signs Vital Signs Date Time Temp Pulse Resp B/P (MAP) Pulse Ox O2 Delivery O2 Flow Rate FiO2 02/29/24 23:01 79 18 100 02/29/24 21:37 171/107 02/29/24 21:00 98.2 98.2 02/29/24 11:52 Room Air 0.0 02/29/24 11:52 21 Physical Exam Gen.: Patient lying in bed in no apparent distress. Breathing on room air. Head: Normocephalic, atraumatic. Eyes: EOMI/PERRLA. Ears: Normal hearing. Normal anatomy. Neck/trachea: Trachea midline, supple. Nose: Normal external anatomy. Mouth: Moist mucous membranes. Chest: Decreased air entry bilaterally. No wheezing or rhonchi. Cardiovascular: Positive S1, positive S2. Regular rate and rhythm. Abdomen: Positive bowel sounds in all 4 quadrants. Soft, non-tender, non- distended. : Deferred. Rectal: Deferred. Skin: Warm, dry. Intact. Extremities: 2+ radial pulses bilaterally. No lower extremity edema. Neuro: Awake, alert, oriented x3. No gross motor or sensory deficits. Cranial nerves II through XII intact. Gait not assessed. Labs/Diagnostic Data Labs Test 02/29/24 13:09 02/29/24 10:19 02/29/24 02:50 02/28/24 23:57 Range/Units Troponin I High Sensitivity 403 *H </=54 ng/L White Blood Count 5.9 # 4.4-10.8 10^3/uL Red Blood Count 4.54 4.5-5.90 10^6/uL Hemoglobin 14.5 13.5-17.5 g/dL Hematocrit 40.8 #L 41.0-53.0 % Mean Corpuscular Volume 89.8 80.0-100.0 fL Mean Corpuscular Hemoglobin 31.8 28.0-32.0 pg Mean Corpuscular Hemoglobin Concent 35.4 32.0-36.0 g/dL Red Cell Distribution Width 13.1 11.8-14.3 % Platelet Count 199 140-450 10^3/uL Mean Platelet Volume 8.2 6.9-10.8 fL Neutrophils (%) (Auto) 84.5 H 37.0-80.0 % Lymphocytes (%) (Auto) 10.5 10.0-50.0 % Monocytes (%) (Auto) 4.8 0.0-12.0 % Eosinophils (%) (Auto) 0.0 0.0-7.0 % Basophils (%) (Auto) 0.2 0.0-2.0 % Neutrophils # (Auto) 5.0 1.6-8.6 10 ^3/uL Lymphocytes # (Auto) 0.6 0.4-5.4 10 ^3/uL Monocytes # (Auto) 0.3 0-1.3 10 ^3/uL Eosinophils # (Auto) 0 0-0.8 10 ^3/uL Basophils # (Auto) 0 0-0.2 10 ^3/uL Nucleated Red Blood Cells 0.2 % Sodium Level 139 136-145 mmol/L Potassium Level 4.1 3.5-5.1 mmol/L Chloride Level 107 98-107 mmol/L Carbon Dioxide Level 23 20-31 mmol/L Anion Gap 9 5-15 Blood Urea Nitrogen 15 9-23 mg/dL Creatinine 0.79 0.700-1.30 mg/dL Glomerular Filtration Rate Calc 102 >90 mL/min BUN/Creatinine Ratio 19.0 10.0-20.0 Serum Glucose 166 H 74-106 mg/dL Calcium Level 8.5 L 8.7-10.4 mg/dL Influenza Type A Antigen Negative Negative Influenza Type B Antigen Negative Negative SARS-CoV-2 Antigen (Rapid) Negative NEGATIVE Total Bilirubin 0.3 0.2-1.0 mg/dL Aspartate Amino Transferase (AST) 111 H 13-40 U/L Alanine Aminotransferase (ALT) 91 H 7-40 U/L Alkaline Phosphatase 150 H 46-116 U/L B-Type Natriuretic Peptide 45.90 0-100 pg/mL Total Protein 7.0 5.7-8.2 g/dL Albumin 4.5 3.2-4.8 g/dL Lipase 51 12-53 U/L Test 02/28/24 23:38 Range/Units Urine Opiates Screen Neg NEGATIVE Urine Fentanyl Screen Neg NEGATIVE Urine Barbiturates Screen Neg NEGATIVE Urine Phencyclidine Screen Neg NEGATIVE Urine Amphetamines Screen Neg NEGATIVE Urine Benzodiazepines Screen Neg NEGATIVE Urine Cocaine Screen Neg NEGATIVE Urine Cannabinoids Screen Pos NEGATIVE Assessment Impression: Acute hypoxic respiratory failure Nicotine dependence (0.5 PPD smoker) AE COPD Plan: Supplemental oxygen PRN Titrate to keep O2 sats above 92%. Continue bronchodilators. Continue antibiotics IV steroids Monitor renal function. Monitor electrolytes. Supplement as necessary. Monitor ins and outs. Smoking cessation discussed for greater than 10 minutes DVT prophylaxis. Prognosis: Poor given patient's multiple co-morbidities. Rest of plan per hospitalist and other consultants. Thank you, LEEROY Martinez, for allowing me to participate in this patient's care. Further recommendations will depend on the patient's clinical course. Please do not hesitate to contact me if you have any questions or concerns. This medical document was created using an electronic medical record system with [employer] dictation system. Although these documentations are being carefully reviewed, there may still be some phonetic and typographical changes. The errors are purely typographical, due to imperfection on the software program, and do not reflect any compromise in the patient's medical care. Plan discussed with: Patient, Other (BRITTANY Samuels/LEEROY Martinez/) REJI SEARS MD Feb 29, 2024 23:18
[2024-03-01] VITALS (19 sets, daily range): BP systolic 112–165; BP diastolic 79–116; PULSE 64–97; RESP 14–18; TEMP 97.6–98.4; O2SAT 94–100
[2024-03-01 06:55] LABS: Basophils # (auto) 0 10 ^3/uL (0-0.2); Basophils % (auto) 0.2 % (0.0-2.0); Eosinophils # (auto) 0 10 ^3/uL (0-0.8); Eosinophils % (auto) 0.2 % (0.0-7.0); Hematocrit 42.4 % (41.0-53.0); Lymphocytes # (auto) 1.9 10 ^3/uL (0.4-5.4); Mean Corpuscular Hemoglobin 31.8 pg (28.0-32.0); Mean Corpuscular Hgb Conc. 35.3 g/dL (32.0-36.0); Mean Corpuscular Volume 90.1 fL (80.0-100.0); Monocytes # (auto) 0.9 10 ^3/uL (0-1.3); Monocytes % (auto) 10.9 % (0.0-12.0); Neutrophils # (auto) 5.2 10 ^3/uL (1.6-8.6); Neutrophils % (auto) 64.7 % (37.0-80.0); Nucleated Red Blood Cells % 0.1 %; Platelet Count (auto) 219 10^3/uL (140-450); Red Blood Cells 4.71 10^6/uL (4.5-5.90); Red Cell Distribution Width 13.1 % (11.8-14.3); White Blood Cell 8.1 10^3/uL (4.4-10.8)
[2024-03-01 07:09] LABS: Anion Gap 9 (5-15); Carbon Dioxide 23 mmol/L (20-31); Sodium 140 mmol/L (136-145)
[2024-03-01 07:10] LABS: Calcium 9.1 mg/dL (8.7-10.4)
[2024-03-01 07:15] LABS: BUN/Creatinine Ratio 10.5 (10.0-20.0); Glucose 96 mg/dL (74-106)
[2024-03-01 07:16] LABS: Blood Urea Nitrogen 8 mg/dL (9-23); Chloride 108 mmol/L (98-107); Potassium 3.1 mmol/L (3.5-5.1)
[2024-03-01 07:46] LABS: INR 0.98 (0.9-1.15); Partial Thromboplastin Time 35.9 SEC (24.5-34.5); Prothrombin Time 10.4 sec (9.3-11.8)
[2024-03-01] MEDS: LIDOCAINE 1% HCL (LOCAL ANESTH.) INJ 20ML MDV ONE (08:14)
[2024-03-01] MEDS: HEPARIN IN NS 1000Units/500mL 1,500 ML ONE (08:15)
[2024-03-01] MEDS: IODIXANOL 320MG/ML 100ML BTL IV ONE ×2 (08:16→08:35)
[2024-03-01] MEDS: VERAPAMIL 2.5MG/ML INJ 2ML VIAL IV ONE (08:18)
[2024-03-01] MEDS: HEPARIN SODIUM (PORCINE) 5000 UNITS/ML 1ML VIAL ONE (08:18)
[2024-03-01] MEDS: ANGIOMAX 250 MG VIAL IV ONE (08:18)
[2024-03-01] MEDS: MIDAZOLAM HCL 2MG/2ML 2ml VIAL (1mg/ml) ONE (08:19)
[2024-03-01] MEDS: LIDOCAINE 2%HCL (LOCAL ANESTH.) INJ 20ML MDV ONE (08:19)
[2024-03-01] MEDS: fentaNYL CITRATE 100 MCG/2 ML VL ONE (08:19)
[2024-03-01] MEDS: IOHEXOL 350 MG/ML 100ML IJ ONE (08:33)
[2024-03-01] MEDS: diphenhdrAMINE HCL 50 MG/1 ML VL ONE (08:37)
[2024-03-01] MEDS: FAMOTIDINE (10MG/ML) 2ML VL IV ONE (08:38)
[2024-03-01] MEDS: methylPREDNISolone SOD SUCC 125 MG/2 ML VL ONE (08:40)
--- NOTE | 2024-03-01 09:34 | DVHOP ---
PROCEDURES PERFORMED: * Left heart catheterization. * Bilateral cine coronary angiography. * Left ventriculography. PREOPERATIVE DIAGNOSIS: Coronary artery disease. POSTOPERATIVE DIAGNOSIS: Mild cardiomyopathy. DESCRIPTION OF PROCEDURE: Prior local anesthesia with 2% lidocaine to the right wrist and full informed consent obtained, the patient was prepped and draped in the usual fashion followed by placement of a 6-Lao sheath into the right radial artery through which 6-Lao Niranjan catheter was used for ventriculography and cannulation of both right and left coronary sinus without complications. HEMODYNAMICS: Aortic blood pressure was 110/70. End-diastolic pressure was 12 without a gradient across the aortic valve on pullback. CORONARY ANATOMY: RCA is a large vessel. It is normal in its proximal, mid, and distal segments. The PDA and the posterolateral branches are normal. The left main is large and normal. The left anterior descending is large and normal. Two diagonals free of significant disease. Circumflex is large with two marginals free of significant disease. Ventriculography in the GALLO projection shows an EF of 45% with anterior hypokinesis. IMPRESSION: Normal left ventricular end-diastolic pressure at rest. Mildly decreased ejection fraction. No significant coronary artery disease. RECOMMENDATIONS: Continue current medical therapy. Risk factor modification to continue. Cessation of smoking. MD SUJIT Pina/ISABEL/AMI TID: [id number] RECEIPT: [id number]
[2024-03-01] MEDS: POTASSIUM EFFERVESENT TAB 25 MEQ PO ONE (13:46)
[2024-03-01 14:30] LABS: Urine Bacteria None Seen /hpf (None Seen)
[2024-03-01 16:00] LABS: Urine Blood Negative /uL (Negative); Urine Clarity Clear (Clear); Urine Color Colorless (Yellow); Urine Protein, UAD Negative (Negative); Urine Specific Gravity 1.015 (1.001-1.035); Urine Squamous Epithelial Cell None Seen /hpf (<5); Urine Urobilinogen Normal (Negative); Urine WBC <1 /hpf (0 - 3)
[2024-03-01] MEDS ORDERED: CARV6.2551 PO (17:32)
[2024-03-01] MEDS ORDERED: BENA-26 PO (17:32)
--- NOTE | 2024-03-01 17:34 | DVHDS2 ---
Discharge Summary Date of Admission Feb 29, 2024 at 02:39 Date of Discharge: Mar 01, 2024 Labs/Diagnostic Data: Laboratory Results Test 03/01/24 13:55 03/01/24 05:55 02/29/24 13:09 02/29/24 02:50 Urine Color Colorless (Yellow) Urine Clarity Clear (Clear) Urine pH 7.0 (5.0-9.0) Urine Specific Berry 1.015 (1.001-1.035) Urine Protein Negative (Negative) Urine Ketones Negative (Negative) Urine Blood Negative /uL (Negative) Urine Nitrite Negative (Negative) Urine Bilirubin Negative (Negative) Urine Urobilinogen Normal mg/dL (Negative) Urine Leukocyte Esterase Negative /uL (Negative) Urine RBC <1 /hpf (0 - 3) Urine WBC <1 /hpf (0 - 3) Urine Squamous Epithelial Cells None seen /hpf (<5) Urine Bacteria None seen /hpf (None Seen) Urine Glucose Normal mg/dL (Normal) White Blood Count 8.1 10^3/uL (4.4-10.8) Red Blood Count 4.71 10^6/uL (4.5-5.90) Hemoglobin 15.0 g/dL (13.5-17.5) Hematocrit 42.4 % (41.0-53.0) Mean Corpuscular Volume 90.1 fL (80.0-100.0) Mean Corpuscular Hemoglobin 31.8 pg (28.0-32.0) Mean Corpuscular Hemoglobin Concent 35.3 g/dL (32.0-36.0) Red Cell Distribution Width 13.1 % (11.8-14.3) Platelet Count 219 10^3/uL (140-450) Mean Platelet Volume 8.1 fL (6.9-10.8) Neutrophils (%) (Auto) 64.7 % (37.0-80.0) Lymphocytes (%) (Auto) 24.0 % (10.0-50.0) Monocytes (%) (Auto) 10.9 % (0.0-12.0) Eosinophils (%) (Auto) 0.2 % (0.0-7.0) Basophils (%) (Auto) 0.2 % (0.0-2.0) Neutrophils # (Auto) 5.2 10 ^3/uL (1.6-8.6) Lymphocytes # (Auto) 1.9 10 ^3/uL (0.4-5.4) Monocytes # (Auto) 0.9 10 ^3/uL (0-1.3) Eosinophils # (Auto) 0 10 ^3/uL (0-0.8) Basophils # (Auto) 0 10 ^3/uL (0-0.2) Nucleated Red Blood Cells 0.1 % Prothrombin Time 10.4 sec (9.3-11.8) Prothrombin Time INR 0.98 (0.9-1.15) Activated Partial Thromboplast Time 35.9 SEC (24.5-34.5) Sodium Level 140 mmol/L (136-145) Potassium Level 3.1 mmol/L (3.5-5.1) Chloride Level 108 mmol/L (98-107) Carbon Dioxide Level 23 mmol/L (20-31) Anion Gap 9 (5-15) Blood Urea Nitrogen 8 mg/dL (9-23) Creatinine 0.76 mg/dL (0.700-1.30) Glomerular Filtration Rate Calc 104 mL/min (>90) BUN/Creatinine Ratio 10.5 (10.0-20.0) Serum Glucose 96 mg/dL (74-106) Calcium Level 9.1 mg/dL (8.7-10.4) Troponin I High Sensitivity 403 ng/L (</=54) Influenza Type A Antigen Negative (Negative) Influenza Type B Antigen Negative (Negative) SARS-CoV-2 Antigen (Rapid) Negative (NEGATIVE) Test 02/28/24 23:57 02/28/24 23:38 Total Bilirubin 0.3 mg/dL (0.2-1.0) Aspartate Amino Transferase (AST) 111 U/L (13-40) Alanine Aminotransferase (ALT) 91 U/L (7-40) Alkaline Phosphatase 150 U/L (46-116) B-Type Natriuretic Peptide 45.90 pg/mL (0-100) Total Protein 7.0 g/dL (5.7-8.2) Albumin 4.5 g/dL (3.2-4.8) Lipase 51 U/L (12-53) Urine Opiates Screen Neg (NEGATIVE) Urine Fentanyl Screen Neg (NEGATIVE) Urine Barbiturates Screen Neg (NEGATIVE) Urine Phencyclidine Screen Neg (NEGATIVE) Urine Amphetamines Screen Neg (NEGATIVE) Urine Benzodiazepines Screen Neg (NEGATIVE) Urine Cocaine Screen Neg (NEGATIVE) Urine Cannabinoids Screen Pos (NEGATIVE) Other Laboratory Tests 03/01/24 05:55 Brief Hx & Hospital Course: 58-year-old male presents with complaints Of short of breath times two days. Patient endorses having upper respiratory infection symptoms with productive cough over the previous week. Patient endorses mild chest pressure Non- radiating. During the emergency department of evaluation the patient is found to have elevated troponin levels 219/576. Patient denies fevers, chills, Nausea, vomiting, Abdominal pain, leg swelling. He is admitted to the hospital and underwent cardiac evaluation including coronary angiogram which did not show any significant disease and recommended medical therapy. While in the hospital otherwise patient clinically remained normal. Patient counseled and educated regarding good blood pressure and cholesterol control at home. He is advised to have a close follow up with the PCP and consultants as mentioned. He is treated for COPD exacerbation with medications. Overall patient is feeling better back to baseline normal status. Therefore he has been discharged home in stable condition. Patient verbalized understanding of his hospital diagnosis, discharge medications, discharge instructions and agree with follow-up plan of care. Consults/Reason for consult Conclusion Study is technically limited. Low-normal left ventricular systolic function with ejection fraction of 50%. Severe hypokinesis of mid and distal anterior septal wall. Normal right ventricular size and systolic function. No hemodynamically significant valvular disease. PA systolic pressure could not be adequately estimated. SIGNED BY: CHARLA HICKMAN MD SIGNED DATE/TIME: 02/29/24 1051 Operations or Procedures PROCEDURES PERFORMED: * Left heart catheterization. * Bilateral cine coronary angiography. * Left ventriculography. PREOPERATIVE DIAGNOSIS: Coronary artery disease. POSTOPERATIVE DIAGNOSIS: Mild cardiomyopathy. DESCRIPTION OF PROCEDURE: Prior local anesthesia with 2% lidocaine to the right wrist and full informed consent obtained, the patient was prepped and draped in the usual fashion followed by placement of a 6-Cypriot sheath into the right radial artery through which 6-Cypriot Niranjan catheter was used for ventriculography and cannulation of both right and left coronary sinus without complications. HEMODYNAMICS: Aortic blood pressure was 110/70. End-diastolic pressure was 12 without a gradient across the aortic valve on pullback. CORONARY ANATOMY: RCA is a large vessel. It is normal in its proximal, mid, and distal segments. The PDA and the posterolateral branches are normal. The left main is large and normal. The left anterior descending is large and normal. Two diagonals free of significant disease. Circumflex is large with two marginals free of significant disease. Ventriculography in the GALLO projection shows an EF of 45% with anterior hypokinesis. IMPRESSION: Normal left ventricular end-diastolic pressure at rest. Mildly decreased ejection fraction. No significant coronary artery disease. RECOMMENDATIONS: Continue current medical therapy. Risk factor modification to continue. Cessation of smoking. David Lee MD GAP/JPS/AMI TID: [id number] RECEIPT: [id number] Condition at Discharge: Stable Final Diagnosis/Problems List COPD/emphysema, demand ischemia status post normal coronary angiogram, nicotine dependence, hypertension Discharge Disposition: Home Discharge Instruct/Medications Diet: Consistent carbohydrate, Cardiac 2g Na,low cholest Activity: No Restrictions, As Tolerated Follow Up/Referral: Dr. Lee reweaver after two weeks and primary care physician after two weeks for blood pressure evaluation and COPD management Medications: As prescribed and home medications per discharge med list New Medications: Carvedilol (Carvedilol) 6.25 Mg Tab 1 TAB PO BID, #60 TAB 1 Refill Continued Medications: Albuterol Sulfate (Albuterol Sulfate Hfa) 108 Mcg/Act Aer 2 PUFF IN QID PRN for 25 Days, #9 Benazepril & Hydrochlorothiazi (Benazepril Hydrochloride/ 20-25 mg) 1 Tab Tab 1 TAB PO DAILY for 30 Days, #30 TAB (This prescription has been renewed) Fluticasone-Salmeterol (Advair Diskus 500/50) 1 Puff Ih 1 PUFF INH BID for 30 Days, #60 Ibuprofen (Ibuprofen) 200 Mg Cap 200 MG PO Q6HPRN, MG Lidocaine (Lidocaine) 5 % Pad 1 PAD TOP Q12HR for 60 Days, #60 APPLY 1 PATCH TOPICALLY TO CLEAN, DRY SKIN. LEAVE ON FOR 12 HOURS THEN REMOVE. MUST WAIT AT LEAST 12 HOURS BEFORE APPLYING PATCH(ES) AGAIN. Omeprazole (Omeprazole Dr) 40 Mg Cap 1 CAP PO DAILY for 30 Days, #30 Tiotropium [place] Monohydrate (Spiriva Handihaler) 18 Mcg Cap 1 CAP IN DAILY for 30 Days, #30 Discontinued Medications: Amlodipine Besylate (Norvasc Tablet) 5 Mg Tb 2 TAB PO DAILY, #30 TAB 5 Refills Discharge Statement: "Patient was advised to return to the ER or call 911 if any headaches, dizziness, shortness of breath, chest pain, abdominal pain, bleeding, fevers, or worsening of medical condition. Patient was counseled about treatment plan, medications, possible side effects, patientverbalized understanding. All questions were answered to the best of my ability. This discharge took greater then 30 minutes in planning, reviewing documentation, counseling the patient, and discussing with other team members." ASSESSMENT ASSESSMENT Assessment COPD/emphysema, demand ischemia status post normal coronary angiogram, nicotine dependence, hypertension WAYNE MCCOLLUM MD Mar 01, 2024 17:34
--- NOTE | 2024-03-01 22:52 | DVHPN2 ---
Progress Note - Dictate Date Seen: Mar 01, 2024 Medical Necessity Reason Pt with a Central, PICC or Fol: No Subjective Patient seen and examined at bedside. Breathing comfortably on room air. Overnight events reviewed. vital signs Vital Sign Date Time Temp Pulse Resp B/P (MAP) Pulse Ox O2 Delivery O2 Flow Rate FiO2 03/01/24 18:35 96 16 100 03/01/24 18:24 Room Air* 0 21 03/01/24 18:14 97.6 03/01/24 17:00 163/116 (132) Total Intake and Output 02/29/24 02/29/24 03/01/24 15:00 23:00 07:00 Intake Total 800 ml 700 ml Balance 800 ml 700 ml objective Gen.: Patient lying in bed in no apparent distress. Breathing on room air. Head: Normocephalic, atraumatic. Eyes: EOMI/PERRLA. Ears: Normal hearing. Normal anatomy. Neck/trachea: Trachea midline, supple. Nose: Normal external anatomy. Mouth: Moist mucous membranes. Chest: Decreased air entry bilaterally. No wheezing or rhonchi. Cardiovascular: Positive S1, positive S2. Regular rate and rhythm. Abdomen: Positive bowel sounds in all 4 quadrants. Soft, non-tender, non- distended. : Deferred. Rectal: Deferred. Skin: Warm, dry. Intact. Extremities: 2+ radial pulses bilaterally. No lower extremity edema. Neuro: Awake, alert, oriented x3. No gross motor or sensory deficits. Cranial nerves II through XII intact. Gait not assessed. laboratory and microbiology Laboratory Tests 03/01/24 05:55 Test 03/01/24 05:55 Range/Units Serum Glucose 96 74-106 mg/dL Assessment/Plan Impression: Acute hypoxic respiratory failure Nicotine dependence (0.5 PPD smoker) AE COPD Events: Remains on room air No respiratory distress. Continue bronchodilators Continue steroids S/p left heart catheterization Follow up Cardiology recs. Recommend outpatient PFTs in 6-8 weeks. Labs and imaging reviewed. Rest of plan as noted below. Plan: Supplemental oxygen PRN Titrate to keep O2 sats above 92%. Continue bronchodilators. Continue steroids Monitor renal function. Monitor electrolytes. Supplement as necessary. Monitor ins and outs. DVT prophylaxis. Prognosis: Guarded given patient's multiple co-morbidities. Rest of plan per hospitalist and other consultants. Thank you, LEEROY Martinez, for allowing me to participate in this patient's care. Further recommendations will depend on the patient's clinical course. Please do not hesitate to contact me if you have any questions or concerns. This medical document was created using an electronic medical record system with [employer] dictation system. Although these documentations are being carefully reviewed, there may still be some phonetic and typographical changes. The errors are purely typographical, due to imperfection on the software program, and do not reflect any compromise in the patient's medical care. Plan discussed with: Patient, Other (BRITTANY Baer) REJI SEARS MD Mar 01, 2024 22:52
== END 2024-03-01 19:08 | disposition home or self-care (01) | DRG 192 ==
LOC: EDBD 22:56 → ER 22:56 → TELE 02-29 02:39 → ER 02-29 02:48 → TELE-WESTW 02-29 04:44
PROVIDERS: ADMIT Nurse Practitioner Family; ATTEND Nurse Practitioner Family
PROC: 4A023N7 Measurement of Cardiac Sampling and Pressure, Left Heart, Percutaneous Approach (ICD-10-PCS; principal; 2024-03-01)
PROC: B211YZZ Fluoroscopy of Multiple Coronary Arteries using Other Contrast (ICD-10-PCS; 2024-03-01)
PROC: B215YZZ Fluoroscopy of Left Heart using Other Contrast (ICD-10-PCS; 2024-03-01)
DX: I16.0 Hypertensive urgency (principal); J96.01 Acute respiratory failure with hypoxia; I21.A1 Myocardial infarction type 2; I42.9 Cardiomyopathy, unspecified; J44.1 Chronic obstructive pulmonary disease with (acute) exacerbation; I25.10 Atherosclerotic heart disease of native coronary artery without angina pectoris; Z20.822 Contact with and (suspected) exposure to COVID-19; J43.9 Emphysema, unspecified; E87.6 Hypokalemia; I50.9 Heart failure, unspecified; F17.210 Nicotine dependence, cigarettes, uncomplicated; Z82.5 Family history of asthma and other chronic lower respiratory diseases; Z82.49 Family history of ischemic heart disease and other diseases of the circulatory system
CPT/HCPCS: 36415; 71045; 71250; 80048; 80053; 80307; 81001; 83690; 83880; 84484; 85025; 85610; 85730; 86850; 86900; 86901; 87426; 87804; 93005; 93306; 93458; 94640; 99152; G0378; J1100; J2003; J2250; J2470; J3480; J3490; J7060; Q9967